=== PATIENT | male | born 1950 | race African-American/Black ===

== ENCOUNTER 2023-05-10 11:20 | Outpatient (CLI) | payer MEDICARE, SELFPAY ==
[2023-05-11 15:31] LABS: Testosterone, Adult Male 138 ng/dL (300-720)
== END 2023-05-10 11:21 | disposition home or self-care (01) ==
PROVIDERS: Visit Provider Nurse Practitioner
DX: C61 Malignant neoplasm of prostate (principal)
CPT/HCPCS: 36415; 84153; 84403

== ENCOUNTER 2023-06-01 10:56 | Outpatient (CLI) | payer MEDICARE, SELFPAY | END 2023-06-01 10:57 | disposition home or self-care (01) | LOC: MRI 10:58 | PROVIDERS: Visit Provider Internal Medicine | DX: C61 Malignant neoplasm of prostate (principal) | CPT/HCPCS: 72195 ==

== ENCOUNTER 2023-10-11 13:30 | Outpatient (RCR) | payer MEDICARE, SELFPAY ==
--- NOTE | 2023-05-18 09:49 | URNOTE ---
Received request for prior auth for [facility]. This has been approved per [facility], 06/20/2023-06/15/2024. Auth #[id number]
--- NOTE | 2023-07-06 12:13 | ONC.NURNOTE ---
Dx: Prostate cancer
[2023-10-11 13:42] VITALS: BP 121/73; PULSE 81; RESP 16; TEMP 36.3; O2SAT 92
[2023-10-11] MEDS: LEUPROLIDE ACETATE 7.5 MG (SQ) SYRINGE SUBCUT (13:53)
[2023-10-11 14:37] LABS: PSA Diagnostic* 0.19 ng/mL (0.10-4.00)
== END 2023-12-17 23:59 | disposition home or self-care (01) ==
LOC: CCIC 13:30
PROVIDERS: Clinical Nurse Specialist; Visit Provider Internal Medicine
DX: C61 Malignant neoplasm of prostate (principal)
CPT/HCPCS: 36415; 84153; 96401; J9217